=== PATIENT | female | born 1995 | race Caucasian/White ===

== ENCOUNTER 2019-07-10 19:46 | Inpatient (IN) | payer OTHER ==
[~2019-07-10] VITALS: Ht 154.9 cm; Wt 83.6 kg
[~2019-07-10 19:46] MED LIST: CALC600T24 PO; FERR134T PO; FOLI0.4T2 PO; PREN-19 PO
[2019-07-10] MEDS ORDERED: LACTATED RINGER'S 1,000 ML IV PRN (20:37)
[2019-07-10 20:41] VITALS: BP 117/77; PULSE 74; RESP 16
[2019-07-10] MEDS ORDERED: CARBOPROST 250 MCG INJ IM PRN (21:00)
[2019-07-10] MEDS ORDERED: OXYTOCIN 30 UNITS/LR 500 ML IV PRN ×2 (21:00→22:00)
[2019-07-10] MEDS ORDERED: OXYTOCIN 30 UNITS/LR 500 ML IV SCH ×2 (21:00)
[2019-07-10] MEDS ORDERED: METHYLERGONOVINE 0.2 MG INJ IM PRN (21:00)
[2019-07-10] MEDS ORDERED: MISOPROSTOL 200 MCG TAB PR PRN (21:00)
[2019-07-10] MEDS ORDERED: LIDOCAINE 1% (MPF) 30 ML INJ INJ PRN (21:00)
[2019-07-10] MEDS ORDERED: BUTORPHANOL 2 MG INJ IV PRN ×2 (21:00)
[2019-07-10] MEDS ORDERED: IBUPROFEN 600 MG TAB PO PRN (21:00)
[2019-07-10] MEDS ORDERED: AMPICILLIN 2 GM/NS (PMX) 100 ML IVPB ONE (22:00)
[2019-07-10] MEDS: LACTATED RINGER'S 1,000 ML IV SCH (22:15)
[2019-07-11] MEDS: AMPICILLIN 1 GM/NS (PMX) 50 ML IVPB SCH ×2 (02:46→06:22)
[2019-07-11] MEDS: LACTATED RINGER'S 1,000 ML IV SCH ×2 (08:44→15:33)
[2019-07-11] MEDS: MISOPROSTOL 50 MCG CAPSULE PO SCH ×3 (13:00→21:00)
[2019-07-12] MEDS: LACTATED RINGER'S 1,000 ML IV SCH ×3 (00:37→10:47)
[2019-07-12] MEDS: MISOPROSTOL 50 MCG CAPSULE PO SCH ×3 (01:00→09:00)
[2019-07-12] MEDS ORDERED: FENTAnyl 2MCG/ML-ROPIV 0.2% 100 ML ONE (04:39)
[2019-07-12] MEDS ORDERED: FENTAnyl 2MCG/ML-ROPIV 0.2% 100 ML BAG EPI SCH (05:00)
[2019-07-12] MEDS ORDERED: NALOXONE (0.4 MG/ML) INJ IV PRN ×2 (05:00→14:30)
[2019-07-12] MEDS ORDERED: MINERAL OIL LIGHT 10 ML VIAL TOP ONE (10:00)
[2019-07-12] MEDS ORDERED: OXYTOCIN 30 UNITS/LR 500 ML IV SCH (12:39)
[2019-07-12] MEDS ORDERED: CARBOPROST 250 MCG INJ IM PRN (13:00)
[2019-07-12] MEDS ORDERED: NACL 0.9% 3 ML SYG IV SCH (13:00)
[2019-07-12] MEDS ORDERED: LANOLIN HPA 1 PKT TOP PRN (13:00)
[2019-07-12] MEDS ORDERED: BENZOCAINE 20% 56 ML SPRAY TOP PRN (13:00)
[2019-07-12] MEDS ORDERED: MISOPROSTOL 200 MCG TAB PR PRN (13:00)
[2019-07-12] MEDS ORDERED: DIPHENHYDRAMINE 25 MG CAP PO PRN (13:00)
[2019-07-12] MEDS ORDERED: OXYTOCIN 30 UNITS/LR 500 ML IV PRN (13:00)
[2019-07-12] MEDS ORDERED: OXYCODONE/ASPIRIN (4.88/325) TAB PO PRN ×2 (13:00)
[2019-07-12] MEDS ORDERED: METHYLERGONOVINE 0.2 MG INJ IM PRN (13:00)
[2019-07-12 15:00] VITALS: BP 125/76; PULSE 77; RESP 18
[2019-07-12 16:00] VITALS: BP 120/75; PULSE 75; RESP 18
[2019-07-12] MEDS: WITCH HAZEL/GLYCERIN PAD PR PRN (17:20)
[2019-07-12] MEDS: IBUPROFEN 600 MG TAB PO SCH (17:23)
[2019-07-12] MEDS: SENNA/DOCUSATE NA (8.6MG/50MG) TAB PO SCH (22:08)
[2019-07-12 23:56] VITALS: BP 118/59; PULSE 88; RESP 16
[2019-07-13] MEDS: IBUPROFEN 600 MG TAB PO SCH ×4 (00:20→17:56)
[2019-07-13 04:00] VITALS: BP 100/67; PULSE 88; RESP 18
[2019-07-13 08:00] VITALS: BP 107/65; PULSE 96; RESP 18
[2019-07-13] MEDS: SENNA/DOCUSATE NA (8.6MG/50MG) TAB PO SCH ×2 (08:54→22:12)
[2019-07-13 16:00] VITALS: BP 118/57; PULSE 95; RESP 18
[2019-07-13] MEDS: WITCH HAZEL/GLYCERIN PAD PR PRN (22:13)
[2019-07-13 23:03] VITALS: BP 112/56; PULSE 95; RESP 20
[2019-07-14] MEDS: IBUPROFEN 600 MG TAB PO SCH ×3 (00:26→11:59)
[2019-07-14 04:00] VITALS: BP 109/62; PULSE 75; RESP 20
[2019-07-14 08:00] VITALS: BP 119/63; PULSE 75; RESP 18
[2019-07-14] MEDS: SENNA/DOCUSATE NA (8.6MG/50MG) TAB PO SCH (09:23)
== END 2019-07-14 13:40 | disposition home or self-care (01) | DRG 805 ==
LOC: OBT 19:46 → L-D 19:46 → OBT 20:30 → L-D 21:51 → PP1 07-12 15:10
PROVIDERS: ADMIT Obstetrics & Gynecology; ATTEND Obstetrics & Gynecology
PROC: 10E0XZZ Delivery of Products of Conception, External Approach (ICD-10-PCS; principal; 2019-07-12)
PROC: 3E033VJ Introduction of Other Hormone into Peripheral Vein, Percutaneous Approach (ICD-10-PCS; 2019-07-12)
DX: O69.81X0 Labor and delivery complicated by cord around neck, without compression, not applicable or unspecified (principal); K83.1 Obstruction of bile duct; O26.62 Liver and biliary tract disorders in childbirth; Z3A.39 39 weeks gestation of pregnancy; Z37.0 Single live birth
CPT/HCPCS: 62322; 76815; 80053; 81001; 85025; 85610; 85730; 86592; 86850; 86900; 86901; 87340; 99464; G0463; J0290; J2590; J3010; J7120